=== PATIENT | female | born 1940 | race Two or more races ===

== ENCOUNTER 2024-11-01 11:16 | Emergency (ER) | payer OTHER ==
[~2024-11-01] VITALS: Ht 157.5 cm; Wt 69.9 kg
[2024-11-01] MEDS ORDERED: MEPERIDINE HCL/PF 50 MG/ML VIAL IM ONE (13:15)
[2024-11-01] MEDS ORDERED: METHYLPREDNISOLONE SOD SUCC 40 MG VIAL IV ONE (13:15)
[2024-11-01] MEDS ORDERED: FAMOtidine 10 MG/ML (4ML VIAL) IV ONE (13:15)
[2024-11-01] MEDS ORDERED: ONDANSETRON HCL 2 MG/ML VIAL IV ONE (13:15)
[2024-11-01] MEDS ORDERED: DIPHENHYDRAMINE HCL 50 MG/ML VIAL 1ML IV ONE (13:15)
[2024-11-01] MEDS ORDERED: DIPHENHYDRAMINE HCL 50 MG/ML VIAL 1ML ONE (13:31)
[2024-11-01] MEDS ORDERED: ONDANSETRON HCL 2 MG/ML VIAL ONE (13:32)
[2024-11-01] MEDS ORDERED: FAMOTIDINE/PF 20 MG/2 ML VIAL ONE (13:32)
[2024-11-01] MEDS ORDERED: METHYLPREDNISOLONE SOD SUCC 40 MG VIAL ONE (13:32)
[2024-11-01 14:31] LABS: MEAN CELL VOLUME 84.4 fL (80.00-100.00); MEAN CORPUSCULAR HEMOGLOBIN 27.3 pg (27.00-32.0); MEAN CORPUSCULAR HGB CONC 32.4 g/dl (32.0-36.0); PLATELET COUNT 242 K/uL (150-450); RED BLOOD COUNT 4.39 M/uL (4.00-6.00); RED CELL DISTRIBUTION WIDTH 16.8 % (11.5-14.5)
[2024-11-01 14:48] LABS: INR 0.94; PARTIAL THROMBOPLASTIN TIME 25.4 SECONDS (22.0-34.0); PROTHROMBIN TIME 10.3 SECONDS (9.0-11.5)
[2024-11-01 14:52] LABS: ALBUMIN 3.7 gm/dL (3.4-5.0); BILIRUBIN TOTAL 0.52 mg/dL (0.3-1.2); CALCIUM 9.9 mg/dL (8.5-10.1); CREATININE SERUM 1.11 mg/dL (0.55-1.02); GFR 46.94; GLOBULINA 4.2 G/DL (2.4-3.5); POTASSIUM 4.14 mEq/L (3.5-5.1); TOTAL PROTEIN 7.9 gm/dL (6.4-8.2)
[2024-11-01] MEDS ORDERED: ZOFRAN8 MG PO (16:53)
[2024-11-01] MEDS ORDERED: PEPCID AC20 MG PO (16:53)
[2024-11-01] MEDS ORDERED: METRONIDAZOLE500 MG PO (16:53)
[2024-11-01] MEDS ORDERED: CIPRO500 MG PO (16:53)
== END 2024-11-01 18:13 | disposition home or self-care (01) ==
LOC: ER 11:18
PROVIDERS: General Practice
DX: R10.31 Right lower quadrant pain (principal); K57.90 Diverticulosis of intestine, part unspecified, without perforation or abscess without bleeding; R10.9 Unspecified abdominal pain; E03.8 Other specified hypothyroidism; E11.9 Type 2 diabetes mellitus without complications; Z88.6 Allergy status to analgesic agent; Z91.041 Radiographic dye allergy status
CPT/HCPCS: 36415; 71045; 74177; 93005; 96365; 96372; 99284; J1200; J2405; J3490 ×3; Q9965